=== PATIENT | male | born 1965 | race Caucasian/White ===

== ENCOUNTER 2019-10-06 10:39 | Emergency (ER) | payer MEDICAID ==
[~2019-10-06] VITALS: Ht 182.9 cm; Wt 84.8 kg
[2019-10-06 10:48] VITALS: BP 122/68
--- NOTE | 2019-10-06 11:00 | NUR ---
PT TO ROOM HERE FOR REFIL.
--- NOTE | 2019-10-06 11:24 | NUR ---
CHURN OPERATOR MARGARINE: Patient/Caregiver given discharge instructions and they have confirmed that they understand the instructions. Patient ambulatory with steady gait.
== END 2019-10-06 11:29 | disposition home or self-care (01) ==
LOC: ED 11:26
DX: G40.909 Epilepsy, unspecified, not intractable, without status epilepticus (principal); Z76.0 Encounter for issue of repeat prescription
CPT/HCPCS: 99281; 99283

== ENCOUNTER 2019-10-06 14:00 | Emergency (ER) | payer MEDICAID ==
[~2019-10-06] VITALS: Ht 182.9 cm; Wt 85.7 kg
--- NOTE | 2019-10-06 14:31 | NUR ---
COOK PRESSURE: PT TO ROOM FROM LOBBY VIA WHEELCHAIR
--- NOTE | 2019-10-06 14:57 | NUR ---
PT C/O OF SEIZURE AFTER DC FROM [facility] FOR PRESCRIPTION REFILL. PT STATES AFTER HE AMBULATED TO PHARMACY THAT HE SAW HE HAD FALLEN, SCRAPED HIS NOSE AND LOST A TOOTH. PT DOES NOT REMEMBER FALLING, PT STATES HE THINKS HE HAD A SEIZURE. STATES HE IS COMPLIANT WITH SEIZURE MEDS. PT CONNECTED TO MONITORING. CALL LIGHT IN REACH. SEIZURE PRECAUTIONS IN PLACE.
[2019-10-06] MEDS ORDERED: SODIUM CHLORIDE FLUSH 10ML SYR IVF ONE (15:00)
--- NOTE | 2019-10-06 15:12 | NUR ---
PIV PLACED. LABS DRAWN. PT TAKEN TO CT.
[2019-10-06 15:22] LABS: MEAN CORPUSCULAR HEMOGLOBIN 33.7 pg (27.5-34.5); MEAN CORPUSCULAR HGB CONC 33.9 g/dL (33.2-36.2); MEAN CORPUSCULAR VOLUME 99.4 fL (81-97); MEAN PLATELET VOLUME 7.3 fL (7.4-10.4); PLATELET COUNT 414 x10^3/uL (130-400)
[2019-10-06 15:31] LABS: ALANINE AMINOTRANSFERASE 24 U/L (12-78); ANION GAP 5 mmol/L (5-15); CALCIUM 8.6 mg/dL (8.5-10.1); CHLORIDE 105 mmol/L (98-107); CREATININE 0.75 mg/dL (0.7-1.3)
[2019-10-06 15:34] LABS: ALKALINE PHOSPHATASE 111 U/L (45-117); BILIRUBIN,TOTAL 0.2 mg/dL (0.2-1.0); TOTAL PROTEIN 7.4 g/dL (6.4-8.2)
--- NOTE | 2019-10-06 15:45 | NUR ---
PT VERY ANGRY, VERBALLY ABUSIVE DURING DISCHARGE DISCUSSION. EAGER TO LEAVE.
--- NOTE | 2019-10-06 15:45 | NUR ---
Note harsha in ED - 10/06/19 at 1805 by BASIM PT VERY ANGRY, VERBALLY ABUSIVE DURING DISCHARGE DISCUSSION. EAGER TO LEAVE.
[2019-10-06 15:48] LABS: BASOPHILS # (AUTO) 0.02 x10^3/uL (0-0.1); BASOPHILS % (AUTO) 0 % (0-1); EOSINOPHILS # (AUTO) 0.01 x10^3/uL (0-0.4); EOSINOPHILS % (AUTO) 0 % (1-7); LYMPHOCYTES # (AUTO) 1.26 x10^3/uL (1-3.4); LYMPHOCYTES % (AUTO) 8 % (22-44); MD SCAN; MONOCYTES # (AUTO) 0.88 x10^3/uL (0.2-0.8); MONOCYTES % (AUTO) 5 % (2-9); NEUTROPHILS # (AUTO) 14.23 x10^3/uL (1.8-6.8); NEUTROPHILS % (AUTO) 87 % (42-75)
[2019-10-06] MEDS ORDERED: PHENYTOIN SODIUM 500 MG in SODIUM CHLORIDE 0.9% 100 ML IV ONE (16:00)
--- NOTE | 2019-10-06 16:00 | NUR ---
ALL RESUTLS ARE BACK AT THIS TIME. CHART UP FOR RECHECK.
--- NOTE | 2019-10-06 16:01 | NUR ---
REPORT GIVEN TO CESAR HE.
--- NOTE | 2019-10-06 16:03 | NUR ---
MEDS REQUESTED FROM PHARMACY.
[2019-10-06] MEDS ORDERED: FILTER 0.22 MICRON IV ONE (16:30)
[2019-10-06] MEDS ORDERED: LEVETIRACETAM 500 MG TABLET PO SCH (17:00)
--- NOTE | 2019-10-06 17:48 | NUR ---
PT AOX4, ANGRY ABOUT INTERACTION EARLIER IN THE DAY WITH OTHER'S. CURSING. THREATENING.
[2019-10-06 17:56] VITALS: BP 120/66
== END 2019-10-06 18:07 | disposition home or self-care (01) ==
LOC: ED 14:36
DX: S00.511A Abrasion of lip, initial encounter (principal); S00.31XA Abrasion of nose, initial encounter; S00.81XA Abrasion of other part of head, initial encounter; G40.301 Generalized idiopathic epilepsy and epileptic syndromes, not intractable, with status epilepticus; G40.909 Epilepsy, unspecified, not intractable, without status epilepticus; X58.XXXA Exposure to other specified factors, initial encounter; Y93.89 Activity, other specified; Y92.89 Other specified places as the place of occurrence of the external cause; Y99.8 Other external cause status
CPT/HCPCS: 36415; 70450; 70486; 80053; 80185; 85025; 93005; 96365; 99285; J1165

== ENCOUNTER 2019-10-10 12:31 | Emergency (ER) | payer MEDICAID, OTHER ==
--- NOTE | 2019-10-10 12:36 | NUR ---
PT CAME IN CO OF TOOTH ACHE. PT WAS GIVEN THE NUMBER OF A DENTIST WELL A LIST OF DENTISTS HE COULD CALL. PT LEFT SATISIFED WITH RESOURCES.
== END 2019-10-10 12:39 ==
LOC: ED 12:35
DX: K08.89 Other specified disorders of teeth and supporting structures (principal); Z53.21 Procedure and treatment not carried out due to patient leaving prior to being seen by health care provider

== ENCOUNTER 2019-10-28 16:56 | Emergency (ER) | payer SELFPAY ==
[~2019-10-28] VITALS: Ht 182.9 cm; Wt 79.9 kg
[2019-10-28 17:00] VITALS: BP 140/81
--- NOTE | 2019-10-28 17:47 | NUR ---
STOCK ASSOCIATE: PT AMBULATORY WITH STEADY GAIT TO ROOM AT THIS TIME. PHYLLIS
== END 2019-10-28 18:09 | disposition home or self-care (01) ==
LOC: ED 17:50
DX: Z76.0 Encounter for issue of repeat prescription (principal); F17.200 Nicotine dependence, unspecified, uncomplicated
CPT/HCPCS: 99281

== ENCOUNTER 2019-11-08 07:50 | Emergency (ER) | payer OTHER ==
[~2019-11-08] VITALS: Ht 182.9 cm; Wt 79.2 kg
[2019-11-08 08:04] VITALS: BP 132/77
[2019-11-08] MEDS ORDERED: PHEN100C PO (08:14)
[2019-11-08] MEDS ORDERED: LEVE500T53 PO (08:15)
--- NOTE | 2019-11-08 08:17 | NUR ---
PT AMBULATORY TO ROOM, STEADY GAIT. ERP TO BEDSIDE. PT SITTING IN BED, NO SIGNS OF DISTRESS, PROVIDED BLANKET. WILL CONTINUE TO MONITOR.
== END 2019-11-08 08:46 | disposition home or self-care (01) ==
LOC: ED 08:20
DX: G40.909 Epilepsy, unspecified, not intractable, without status epilepticus (principal); Z76.0 Encounter for issue of repeat prescription
CPT/HCPCS: 99281

== ENCOUNTER 2019-11-10 09:17 | Emergency (ER) | payer SELFPAY ==
[~2019-11-10] VITALS: Ht 185.4 cm; Wt 80.5 kg
[~2019-11-10 09:17] MED LIST: LEVE500T53 PO; PHEN100C PO
--- NOTE | 2019-11-10 10:08 | NUR ---
PT RETURNED TO LOBBY STATING HE WAS UNABLE TO FILL HIS RX DUE TO NOT KNOWING HIS MEDICAID NUMBER. REGISTRATION WAS UNABLE TO LOCATE HIS MEDICAD NUMBER. PROVIDER WAS MADE AWARE OF THIS SITUATION. PT IS ESTABLISHED AT [facility]. PT WAS DIRECTED TO THAT CLINIC THEY MAY HAVE HIS MEDICAID NUMBER ON FILE. PT IS TO ATTEMPT TO CONTACT [facility] FOR MEDICAID NUMBER.
== END 2019-11-10 10:00 ==
LOC: ED 09:40
DX: R56.9 Unspecified convulsions (principal); Z76.0 Encounter for issue of repeat prescription; Z87.891 Personal history of nicotine dependence
CPT/HCPCS: 99281

== ENCOUNTER 2019-12-29 21:51 | Emergency (ER) | payer MEDICAID ==
[~2019-12-29] VITALS: Ht 182.9 cm; Wt 83.0 kg
[2019-12-29 22:19] VITALS: BP 112/55
[2019-12-29] MEDS ORDERED: LEVETIRACETAM 500 MG TABLET ONE (22:49)
[2019-12-29] MEDS ORDERED: LEVETIRACETAM 500 MG TABLET PO SCH (23:00)
== END 2019-12-29 23:06 | disposition home or self-care (01) ==
LOC: ED 23:05
DX: G40.309 Generalized idiopathic epilepsy and epileptic syndromes, not intractable, without status epilepticus (principal); Z76.0 Encounter for issue of repeat prescription; F17.210 Nicotine dependence, cigarettes, uncomplicated
CPT/HCPCS: 99281; 99283

== ENCOUNTER 2020-02-15 19:30 | Emergency (ER) | payer MEDICAID ==
[~2020-02-15] VITALS: Ht 182.9 cm; Wt 82.9 kg
[2020-02-15 19:33] VITALS: BP 137/77
[2020-02-15] MEDS ORDERED: LEVETIRACETAM 500 MG TABLET ONE (19:40)
[2020-02-15] MEDS ORDERED: LEVETIRACETAM 500 MG TABLET PO ONE (20:00)
== END 2020-02-15 19:46 | disposition home or self-care (01) ==
LOC: ED 19:45
DX: G40.409 Other generalized epilepsy and epileptic syndromes, not intractable, without status epilepticus (principal); Z76.0 Encounter for issue of repeat prescription
CPT/HCPCS: 99281

== ENCOUNTER 2020-02-26 20:59 | Emergency (ER) | payer MEDICAID ==
[~2020-02-26] VITALS: Ht 182.9 cm; Wt 81.7 kg
[2020-02-26 21:15] VITALS: BP 112/69
[2020-02-26] MEDS ORDERED: LEVETIRACETAM 500 MG TABLET ONE (21:31)
--- NOTE | 2020-02-26 21:36 | NUR ---
PATIENT MEDICATED AND DISCHARGED FROM TRIAGE PER PRODUCT TECHNICIAN AND BOB VINCENT
[2020-02-27] MEDS ORDERED: LEVETIRACETAM 500 MG TABLET PO SCH (09:00)
== END 2020-02-26 21:44 | disposition home or self-care (01) ==
LOC: ED 21:10
DX: G40.909 Epilepsy, unspecified, not intractable, without status epilepticus (principal); Z76.0 Encounter for issue of repeat prescription; Z72.9 Problem related to lifestyle, unspecified; F12.10 Cannabis abuse, uncomplicated
CPT/HCPCS: 99281

== ENCOUNTER 2020-03-04 14:52 | Emergency (ER) | payer MEDICAID ==
[~2020-03-04] VITALS: Ht 182.9 cm; Wt 82.1 kg
[2020-03-04 14:59] VITALS: BP 107/70
[2020-03-04] MEDS ORDERED: NEOSPORIN OINT. PKT 1 PACKET ONE (15:58)
--- NOTE | 2020-03-04 16:05 | NUR ---
Patient given discharge instructions and they have confirmed that they understand the instructions. Patient ambulatory with steady gait.
== END 2020-03-04 16:06 | disposition home or self-care (01) ==
LOC: ED 16:05
DX: S50.861A Insect bite (nonvenomous) of right forearm, initial encounter (principal); G40.909 Epilepsy, unspecified, not intractable, without status epilepticus; W57.XXXA Bitten or stung by nonvenomous insect and other nonvenomous arthropods, initial encounter; Y93.89 Activity, other specified; Y92.89 Other specified places as the place of occurrence of the external cause; Y99.8 Other external cause status
CPT/HCPCS: 99281

== ENCOUNTER 2020-03-14 15:08 | Emergency (ER) | payer MEDICAID ==
[~2020-03-14] VITALS: Ht 182.9 cm; Wt 83.8 kg
[2020-03-14 15:14] VITALS: BP 115/44
[2020-03-14] MEDS ORDERED: AZITHROMYCIN 500 MG TABLET ONE (16:22)
[2020-03-14] MEDS ORDERED: CEFTRIAXONE 250 MG ONE (16:22)
[2020-03-14] MEDS ORDERED: CEFTRIAXONE 250 MG IM ONE (16:30)
[2020-03-14] MEDS ORDERED: AZITHROMYCIN 500 MG TABLET PO ONE (16:30)
== END 2020-03-14 16:38 | disposition home or self-care (01) ==
LOC: ED 15:27
DX: A64 Unspecified sexually transmitted disease (principal); G40.909 Epilepsy, unspecified, not intractable, without status epilepticus; Z87.891 Personal history of nicotine dependence
CPT/HCPCS: 96372; 99283; J0696

== ENCOUNTER 2020-04-11 18:58 | Emergency (ER) | payer MEDICAID ==
[~2020-04-11] VITALS: Ht 190.5 cm; Wt 78.2 kg
[2020-04-11 19:02] VITALS: BP 105/39
--- NOTE | 2020-04-11 19:29 | NUR ---
PA at bedside.
== END 2020-04-11 19:41 | disposition home or self-care (01) ==
LOC: ED 19:20
DX: L01.01 Non-bullous impetigo (principal); Z76.0 Encounter for issue of repeat prescription; G40.909 Epilepsy, unspecified, not intractable, without status epilepticus; Z87.891 Personal history of nicotine dependence
CPT/HCPCS: 99281

== ENCOUNTER 2020-04-12 09:44 | Emergency (ER) | payer MEDICAID ==
--- NOTE | 2020-04-12 09:59 | NUR ---
NO ANSWER FROM TRIAGE
== END 2020-04-12 10:03 | disposition left against medical advice (07) ==
LOC: ED 10:00
DX: K13.0 Diseases of lips (principal); Z53.21 Procedure and treatment not carried out due to patient leaving prior to being seen by health care provider

== ENCOUNTER 2020-04-12 21:40 | Emergency (ER) | payer MEDICAID ==
[~2020-04-12] VITALS: Ht 185.4 cm; Wt 87.0 kg
[2020-04-12 21:53] VITALS: BP 127/68
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
--- NOTE | 2020-04-12 22:06 | NUR ---
NS WITH FREE FLOW TUBING STARTED TO FLUSH EYES. PT STATING EYE PAIN IS 10/10 AND BURNING.
== END 2020-04-12 22:27 | disposition home or self-care (01) ==
LOC: ED 21:59
DX: H10.213 Acute toxic conjunctivitis, bilateral (principal); G40.909 Epilepsy, unspecified, not intractable, without status epilepticus
CPT/HCPCS: 99283

== ENCOUNTER 2020-05-03 12:29 | Emergency (ER) | payer MEDICAID ==
[~2020-05-03] VITALS: Ht 182.9 cm; Wt 87.6 kg
[2020-05-03 12:31] VITALS: BP 122/70
--- NOTE | 2020-05-03 12:39 | NUR ---
patient arrives needing rx keppra and dilantan filled. he states he usually gets it filled at [phone] but they are closed.
--- NOTE | 2020-05-03 12:53 | NUR ---
REPORT TO BREAK YING BENJAMIN
== END 2020-05-03 13:06 | disposition home or self-care (01) ==
LOC: ED 13:00
DX: G40.909 Epilepsy, unspecified, not intractable, without status epilepticus (principal); Z76.0 Encounter for issue of repeat prescription; R00.1 Bradycardia, unspecified
CPT/HCPCS: 99281